=== PATIENT | female | born 1940 | race Caucasian/White ===

== ENCOUNTER 2018-02-17 15:49 | Observation (INO) | payer OTHER, MEDICARE ==
--- NOTE | 2018-02-17 15:53 | PDOC ---
Rapid Medical Evaluation Chief Complaint: Syncope/Near Syncope Time Seen by Provider: 02/17/18 15:52 Medical Evaluation: Allergies Allergy/AdvReac Type Severity Reaction Status Date / Time No Known Allergies Allergy Verified 02/17/18 15:52 02/17/18 15:57 The patient presents with a chief complaint of: synopal episodes, last one 2 days ago I have performed a brief in-person evaluation of this patient. Pertinent physical exam findings: vss, stable I have ordered the following: ekg, sncope labs The patient will proceed to the ED for further evaluation.
[2018-02-17 16:37] LABS: BASO % 0.4 % (0-2.0); EOS % 0.5 % (0-4.5); HEMATOCRIT 39.7 % (32.4-45.2); HEMOGLOBIN 13.6 GM/dL (10.7-15.3); LYMPH % 19.3 % (8-40); MCH 30.9 pg (25.7-33.7); MCHC 34.2 g/dl (32.0-36.0); MEAN CELL VOLUME 90.5 fl (80-96); MONO % 6.6 % (3.8-10.2); NEUT % 73.2 % (42.8-82.8); PLATELET COUNT 252 K/MM3 (134-434); RBC 4.39 M/mm3 (3.60-5.2); RDW 15.1 % (11.6-15.6); WHITE BLOOD COUNT 10.2 K/mm3 (4.0-10.0)
[2018-02-17 17:18] LABS: ALBUMIN 3.9 g/dl (3.4-5.0); ALK PHOS 56 U/L (45-117); ANION GAP 7 MMOL/L (8-16); BILIRUBIN,TOTAL 1.2 mg/dL (0.2-1); BLOOD UREA NITROGEN 18 mg/dL (7-18); CALCIUM 9.2 mg/dL (8.5-10.1); CHLORIDE 106 mmol/L (98-107); CO2 27 mmol/L (21-32); CREATININE 0.7 mg/dL (0.55-1.3); GLUCOSE,RANDOM 79 mg/dL (74-106); POTASSIUM 3.7 mmol/L (3.5-5.1); SGOT/AST 27 U/L (15-37); SGPT/ALT 30 U/L (13-61); SODIUM 140 mmol/L (136-145); TOT PROT 6.9 g/dl (6.4-8.2)
--- NOTE | 2018-02-17 17:57 | PDOC ---
History of Present Illness - General Chief Complaint: Syncope/Near Syncope Stated Complaint: LIGHTHEADED (PCP SENT) Time Seen by Provider: 02/17/18 15:52 - History of Present Illness Initial Comments: 02/17/18 17:52 77 yo F w a hx of HTN, HLD, CAD s/p PCI and one stent (3.5 - 4 years ago) presents after being sent here from her PCP - Dr. Ruiz to be evaluated for repeated falls. She has not fallen for the past 3 days and denies any current complaints. She denies having a headache, blurry vision, chest pain, back pain, flank pain, rib pain, SOB or difficulty breathing. She denies dysuria, frequency , urgency. She takes clopidogrel and NSAIDs. Denies taking any other blood thinners. In general when she falls, she feels a bit lightheaded beforehand. She denies palpitations or chest pain during or prior to her falls. She does not lose continence when she falls. She reports that she awakes immediately after falling down and is only passed out for about 30 seconds. She denies confusion after the events. She says one possible trigger for syncopizing is prolonged standing. She reports having a history of passing out when blood is drawn. She denies micturitional syncope. Past History - Past Medical History Allergies/Adverse Reactions: Allergies Allergy/AdvReac Type Severity Reaction Status Date / Time No Known Allergies Allergy Verified 02/17/18 15:52 Home Medications: Ambulatory Orders Atorvastatin Ca [Lipitor] 40 mg PO HS 08/08/15 Clopidogrel Bisulfate [Clopidogrel] 75 mg PO DAILY 08/08/15 Gabapentin 600 mg PO DAILY 08/08/15 Atenolol [Tenormin -] 25 mg PO HS #30 tablet 08/10/15 Lisinopril [Prinivil] 20 mg PO HS #30 tablet 08/10/15 Loratadine [Claritin -] 10 mg PO DAILY #30 tablet 08/10/15 Biotin 10,000 mcg PO DAILY 02/17/18 Calcium Carbonate [Calcium] 600 mg PO DAILY 02/17/18 Furosemide 20 mg PO DAILY 02/17/18 Ibuprofen/Famotidine [Duexis 800-26.6 mg Tablet] 1 each PO DAILY 02/17/18 Losartan Potassium 50 mg PO DAILY 02/17/18 Meloxicam 15 mg PO DAILY 02/17/18 Metoprolol Succinate 50 mg PO DAILY 02/17/18 Cancer: Yes (1 stent) Cardiac Disorders: Yes (CAD) COPD: No HTN: Yes Hypercholesterolemia: Yes - Surgical History Cardiac Surgery: Yes (Stent) - Suicide/Smoking/Psychosocial Hx Smoking History: Never smoked Hx Alcohol Use: No Drug/Substance Use Hx: No Substance Use Type: None Review of Systems - Review of Systems Comments:: 02/17/18 17:58 CONSTITUTIONAL: Absent: fever, chills, diaphoresis, generalized weakness, malaise, loss of appetite HEENT: Absent: rhinorrhea, nasal congestion, throat pain, throat swelling, difficulty swallowing, mouth swelling, ear pain, eye pain, visual Changes CARDIOVASCULAR: Present: syncope, lightheadedness Absent: chest pain, palpitations, irregular heart rate, peripheral edema RESPIRATORY: Absent: cough, shortness of breath, dyspnea with exertion, orthopnea, wheezing, stridor, hemoptysis GASTROINTESTINAL: Absent: abdominal pain, abdominal distension, nausea, vomiting, diarrhea, constipation, melena, hematochezia GENITOURINARY: Absent: dysuria, frequency, urgency, hesitancy, hematuria, flank pain, genital pain MUSCULOSKELETAL: Absent: myalgia, arthralgia, joint swelling SKIN: Absent: rash, itching, pallor HEMATOLOGIC/IMMUNOLOGIC: Absent: easy bleeding, easy bruising, lymphadenopathy, frequent infections ENDOCRINE: Absent: unexplained weight gain, unexplained weight loss, heat intolerance, cold intolerance NEUROLOGIC: Absent: headache, focal weakness or paresthesias, dizziness, unsteady gait, seizure, mental status changes, bladder or bowel incontinence PSYCHIATRIC: Absent: anxiety, depression, suicidal or homicidal ideation, hallucinations. *Physical Exam - Vital Signs Last Vital Signs Temp Pulse Resp BP Pulse Ox 98.8 F 86 18 168/74 97 02/17/18 15:52 02/17/18 15:52 02/17/18 15:52 02/17/18 15:52 02/17/18 15:52 - Physical Exam Comments: 02/17/18 17:59 GENERAL: Well developed, well nourished. Awake and alert. No acute distress. HEENT: Normocephalic, atraumatic. PERRLA, EOMI. No conjunctival pallor. Sclera are non- icteric. Moist mucous membranes. Oropharynx is clear. NECK: Supple. Full ROM. No JVD. No thyromegaly. No lymphadenopathy. CARDIOVASCULAR: Regular rate and rhythm. No murmurs, rubs, or gallops. Distal pulses are 2+ and symmetric. PULMONARY: No evidence of respiratory distress. Lungs clear to auscultation bilaterally. No wheezing, rales or rhonchi. ABDOMINAL: Soft. Non-tender. Non-distended. No rebound or guarding. No organomegaly. Normoactive bowel sounds. MUSCULOSKELETAL Normal range of motion at all joints. No bony deformities or tenderness. No CVA tenderness. EXTREMITIES: No cyanosis. No clubbing. No edema. No calf tenderness. SKIN: Warm and dry. Normal capillary refill. No rashes. No jaundice. NEUROLOGICAL: Alert, awake, appropriate. Cranial nerves 2-12 intact. No deficits to light touch in face, upper extremities and lower extremities. No motor deficits in the in face, upper extremities and lower extremities. Normal speech. Gait is normal without ataxia. PSYCHIATRIC: Cooperative. Good eye contact. Appropriate mood and affect. ED Treatment Course - LABORATORY CBC & Chemistry Diagram: 02/17/18 16:08 02/17/18 16:08 - ADDITIONAL ORDERS Additional order review: Laboratory Results 02/17/18 16:08 Sodium 140 Potassium 3.7 Chloride 106 Carbon Dioxide 27 Anion Gap 7 L BUN 18 Creatinine 0.7 Creat Clearance w eGFR > 60 Random Glucose 79 Calcium 9.2 Total Bilirubin 1.2 H AST 27 ALT 30 Alkaline Phosphatase 56 Creatine Kinase 224 H Troponin I < 0.02 Total Protein 6.9 Albumin 3.9 02/17/18 16:08 RBC 4.39 MCV 90.5 MCHC 34.2 RDW 15.1 MPV 9.0 Neutrophils % 73.2 Lymphocytes % 19.3 Monocytes % 6.6 Eosinophils % 0.5 Basophils % 0.4 Medical Decision Making - Medical Decision Making 02/17/18 18:01 77 yo F w a hx of HTN, HLD, CAD s/p PCI and one stent (3.5 - 4 years ago) presents from Dr. Ruiz's office to be admitted for repeated falls. She is currently not in any distress and has not fallen for the past 3 days. She is on clopidogrel and NSAIDs. Based on her fall descriptions and given her cardiac hx this sounds like it can be cardiac in nature. Unlikely seizures based on lack of postictal periods and no loss of continence. DD: Syncope - cardiogenic vs vasovagal, polypharmacy, cva, infection, dehydration, orthostatic hypotension. Plan: Labs, urine, ekg, CXR, Admit. 02/17/18 18:42 *DC/Admit/Observation/Transfer Diagnosis at time of Disposition: Lightheadedness, CAD (coronary artery disease), Repeated falls - Discharge Dispostion Condition at time of disposition: Guarded Decision to Admit order: Yes - Referrals Referrals: Sofía Ruiz MD [Primary Care Provider] - - Patient Instructions - Post Discharge Activity
[2018-02-17 18:34] LABS: URINE APPEARANCE CLEAR; URINE BILIRUBIN NEGATIVE (<2.0 mg/dL); URINE COLOR YELLOW; URINE GLUCOSE (UA) NEGATIVE (NEGATIVE); URINE KETONE TRACE (NEGATIVE); URINE NITRITE NEGATIVE (NEGATIVE); URINE PROTEIN NEGATIVE (NEGATIVE)
[2018-02-17 18:38] LABS: URINE LEUK ESTERASE 2+ (NEGATIVE)
--- NOTE | 2018-02-17 18:43 | PDOC ---
Attending Attestation - Resident Resident Name: Ezekiel Pickett - ED Attending Attestation I have performed the following: I have examined & evaluated the patient, The case was reviewed & discussed with the resident, I agree w/resident's findings & plan, Exceptions are as noted - HPI HPI: 02/17/18 18:40 77 yo female sent in by DR Ruiz for admission for "drop episodes" and falls.Her last fall was 3 days ago -she states she feels lightheaded just before she goes down and she has a short episode of LOC lasting less than 30 seconds 02/17/18 21:11 - Physicial Exam PE: 02/17/18 21:12 77 yo fmeale in no acute distress,conversant and ambulatory head ncat eyes val eomi neck supple lungs cta b/l cvs [id number] no rubs or murmurs abd nontender ext no edema,no erythema skin warm and dry neuro axox3,no gross focal neuro deficits appreciated psych appropriate - Medical Decision Making 02/17/18 18:43 Past medical history significant for hypertension, coronary artery disease, status post PCI 1 cardiac stent. She is on Plavix and NSAIDs at home. Here her first troponin is negative Patient admitted to telemetry floor for repeated falls and syncopal episode 02/17/18 18:44 02/17/18 21:14 negative troponin stable VS admitted
[2018-02-17 18:56] LABS: EPI CELLS RARE /HPF (FEW); URINE HYALINE CAST 1 /lpf; URINE MUCUS RARE
[2018-02-17 20:39] LABS: INR 0.94 (0.83-1.09); PROTHROMBIN TIME (PATIENT) 10.6 SEC (9.7-13.0)
[2018-02-17] MEDS ORDERED: HEPARIN NA (PORCINE) 5,000 UNITS/ML 1ML VIAL ONE (22:29)
--- NOTE | 2018-02-17 22:31 | HP ---
CHIEF COMPLAINT: frequent falls PCP: Joseph HISTORY OF PRESENT ILLNESS: This is a 77 year old female with a significant past medical history of HTN, CAD who presented to the ED from Dr. Ruiz's office for admission for frequent falls. Pt reports that she often has episodes where she becomes weak and slumps to the floor then wakes back up right away. She has not had an episode in the past couple of days. She denies chest pain or dizziness during the episodes. She does report SOB with walking. ER course was notable for: (1) troponin neg x 1 (2) CT head without acute intracranial pathology (3) Recent Travel: pt denies PAST MEDICAL HISTORY: HTN, HLD, CAD s/p stent 5-6y ago, angioplasty 1y ago, neuropathy, depression PAST SURGICAL HISTORY: Tonsillectomy as a child cardiac stent x 1 Social History: Smoking: quit 40y ago, prior 1/2 PPD Alcohol: 1 glass of wine with dinner occasionally Drugs: denies Family History: parents in their 70s, unknown COD no siblings Allergies No Known Allergies Allergy (Verified 02/17/18 15:52) HOME MEDICATIONS: 3 Medication Instructions Recorded Atorvastatin Ca [Lipitor] 40 mg PO HS 08/08/15 Gabapentin 400 mg PO HS 08/08/15 Biotin 1,000 mcg PO DAILY 02/17/18 Calcium Carbonate [Calcium] 600 mg PO DAILY 02/17/18 Furosemide 20 mg PO DAILY 02/17/18 Ibuprofen/Famotidine [Duexis 1 each PO BID 02/17/18 800-26.6 mg Tablet] Losartan Potassium 100 mg PO DAILY 02/17/18 Metoprolol Succinate 50 mg PO DAILY 02/17/18 Amlodipine Besylate 5 mg PO DAILY 02/18/18 Citalopram Hydrobromide [Celexa -] 20 mg PO DAILY 02/18/18 Magnesium 1 tab PO DAILY 02/18/18 REVIEW OF SYSTEMS CONSTITUTIONAL: Present: generalized weakness Absent: fever, chills, diaphoresis, malaise, loss of appetite, weight change HEENT: Absent: rhinorrhea, nasal congestion, throat pain, throat swelling, difficulty swallowing, mouth swelling, ear pain, eye pain, visual changes CARDIOVASCULAR: Absent: chest pain, syncope, palpitations, irregular heart rate, lightheadedness , peripheral edema RESPIRATORY: Present: dyspnea with exertion Absent: cough, shortness of breath, orthopnea, wheezing, stridor, hemoptysis GASTROINTESTINAL: Absent: abdominal pain, abdominal distension, nausea, vomiting, diarrhea, constipation, melena, hematochezia GENITOURINARY: Absent: dysuria, frequency, urgency, hesitancy, hematuria, flank pain, genital pain MUSCULOSKELETAL: Absent: myalgia, arthralgia, joint swelling, back pain, neck pain SKIN: Absent: rash, itching, pallor HEMATOLOGIC/IMMUNOLOGIC: Absent: easy bleeding, easy bruising, lymphadenopathy, frequent infections ENDOCRINE: Absent: unexplained weight gain, unexplained weight loss, heat intolerance, cold intolerance NEUROLOGIC: Absent: headache, focal weakness or paresthesias, dizziness, unsteady gait, seizure, mental status changes, bladder or bowel incontinence PSYCHIATRIC: Absent: anxiety, depression, suicidal or homicidal ideation, hallucinations. PHYSICAL EXAMINATION Vital Signs - 24 hr 3 02/17/18 02/17/18 15:52 22:16 Temperature 98.8 F 98.2 F Pulse Rate 86 Pulse Rate [ 80 Apical] Respiratory 18 20 Rate Blood Pressure 168/74 Blood Pressure 148/72 [Right Arm] O2 Sat by Pulse 97 98 Oximetry (%) GENERAL: Awake, alert, and fully oriented, in no acute distress. HEAD: Normal with no signs of trauma. EYES: Pupils equal, round and reactive to light, extraocular movements intact, sclera anicteric, conjunctiva clear. No lid lag. EARS, NOSE, THROAT: Ears normal, nares patent, oropharynx clear without exudates. Moist mucous membranes. NECK: Normal range of motion, supple without lymphadenopathy, JVD, or masses. LUNGS: Breath sounds equal, clear to auscultation bilaterally. No wheezes, and no crackles. No accessory muscle use. HEART: Regular rate and rhythm, normal S1 and S2 without murmur, rub or gallop. ABDOMEN: Soft, nontender, not distended, normoactive bowel sounds, no guarding, no rebound, no masses. No hepatomegaly or splenomegaly. MUSCULOSKELETAL: Normal range of motion at all joints. No bony deformities or tenderness. No CVA tenderness. UPPER EXTREMITIES: 2+ pulses, warm, well-perfused. No cyanosis. No clubbing. No peripheral edema. LOWER EXTREMITIES: 2+ pulses, warm, well-perfused. No calf tenderness. No peripheral edema. NEUROLOGICAL: Cranial nerves II-XII intact. Normal speech. Normal gait. PSYCHIATRIC: Cooperative. Good eye contact. Appropriate mood and affect. SKIN: Warm, dry, normal turgor, no rashes or lesions noted, normal capillary refill. Laboratory Results - last 24 hr 3 02/17/18 02/17/18 02/17/18 16:08 16:08 16:08 WBC 10.2 H RBC 4.39 Hgb 13.6 Hct 39.7 MCV 90.5 MCH 30.9 MCHC 34.2 RDW 15.1 Plt Count 252 MPV 9.0 Absolute Neuts (auto) 7.5 Neutrophils % 73.2 Lymphocytes % 19.3 Monocytes % 6.6 Eosinophils % 0.5 Basophils % 0.4 Nucleated RBC % 0 PT with INR 10.60 INR 0.94 PTT (Actin FS) 30.0 Sodium 140 Potassium 3.7 Chloride 106 Carbon Dioxide 27 Anion Gap 7 L BUN 18 Creatinine 0.7 Creat Clearance w eGFR > 60 Random Glucose 79 Calcium 9.2 Total Bilirubin 1.2 H AST 27 ALT 30 Alkaline Phosphatase 56 Creatine Kinase 224 H Creatine Kinase Index 3.5 CK-MB (CK-2) 7.9 H Troponin I < 0.02 Total Protein 6.9 Albumin 3.9 Urine Color Urine Appearance Urine pH Ur Specific [place] Urine Protein Urine Glucose (UA) Urine Ketones Urine Blood Urine Nitrite Urine Bilirubin Urine Urobilinogen Ur Leukocyte Esterase Urine WBC (Auto) Urine RBC (Auto) Ur Epithelial Cells Hyaline Casts Urine Mucus 3 Urine Color Yellow 02/17/18 18:11 Urine Appearance Clear 02/17/18 18:11 Urine pH 6.0 (5.0-8.0) 02/17/18 18:11 Ur Specific [place] 1.023 (1.001-1.035) 02/17/18 18:11 Urine Protein Negative (NEGATIVE) 02/17/18 18:11 Urine Glucose (UA) Negative (NEGATIVE) 02/17/18 18:11 Urine Ketones Trace (NEGATIVE) H 02/17/18 18:11 Urine Blood Negative (NEGATIVE) 02/17/18 18:11 Urine Nitrite Negative (NEGATIVE) 02/17/18 18:11 Urine Bilirubin Negative (<2.0 mg/dL) 02/17/18 18:11 Ur Leukocyte Esterase 2+ (NEGATIVE) H 02/17/18 18:11 Urine WBC (Auto) 12 02/17/18 18:11 Urine RBC (Auto) 10 02/17/18 18:11 Ur Epithelial Cells Rare /HPF (FEW) 02/17/18 18:11 Hyaline Casts 1 02/17/18 18:11 Urine Mucus Rare 02/17/18 18:11 ECG normal sinus rhythm vent rate 79, QTC 458 left axis deviation incomplete LBBB TWI lead V5-V6 and aVL Radiology Reports CT head Impression: Mild volume loss without evidence of acute intracranial pathology. Bilateral mastoid effusion Reported By: Conner Downs MD 02/17/182102 Chest PA / Lat Impression: No significant interval change Borderline cardiomegaly without evidence of acute lung disease Reported By: Conner Downs MD 02/17/181954 ASSESSMENT/PLAN: 77yF with PMH HTN, HLD, CAD s/p stent 5-6y ago, angioplasty 1y ago, neuropathy, depression presented to the ED with h/o frequent falls. ? transient episodes LOC - admit to tele - trend troponin - cardiology consult, defer to PCP in am - last echo in 2015, will repeat - consider neuro consult, defer to PCP HTN/HLD - cont home meds: lipitor, lasix, losartan, toprol, amlodipine CAD - pt previously on plavix but not on most recent med list from PCP, PCP to f/ u in am - cont lipitor, statin depression - cont home celexa DVT PPX - heparin 5000u BID FEN - tolerating po - BMP in am - low sodium diet as tolerated Dispo: pt currently requires further observation. Visit type - Emergency Visit Emergency Visit: Yes ED Registration Date: 02/17/18 Care time: The patient presented to the Emergency Department on the above date and was hospitalized for further evaluation of their emergent condition. - New Patient This patient is new to me today: Yes Date on this admission: 02/17/18 - Critical Care Critical Care patient: No Hospitalist Screening - Colonoscopy Questionnaire Colonoscopy Questionnaire: Colonoscopy Questionnaire - Patient: 50 - 75 years old and never had a screening colonoscopy: No History of colon or rectal polyps, or CA: No History of IBD, Crohn's disease or UC: No History of abdominal radiation therapy as a child: No - Relative: 1 with colon or rectal CA, or polyps at age 60 or younger: No Colon or rectal CA diagnosed at age 45 or younger: No Multiple relatives with colon or rectal CA: No - Outcome: Screening Result: Negative Screen
[2018-02-17] MEDS: HEPARIN NA (PORCINE) 5,000 UNITS/ML 1ML VIAL SQ SCH (22:35)
[2018-02-18 00:02] VITALS: BMI 24.1
[2018-02-18 06:15] LABS: BASO % 0.3 % (0-2.0); EOS % 0.7 % (0-4.5); HEMATOCRIT 36.8 % (32.4-45.2); HEMOGLOBIN 12.4 GM/dL (10.7-15.3); LYMPH % 22.5 % (8-40); MCH 30.5 pg (25.7-33.7); MCHC 33.7 g/dl (32.0-36.0); MEAN CELL VOLUME 90.5 fl (80-96); MEAN PLT VOLUME 8.6 fl (7.5-11.1); MONO % 9.8 % (3.8-10.2); NEUT % 66.7 % (42.8-82.8); PLATELET COUNT 201 K/MM3 (134-434); RBC 4.07 M/mm3 (3.60-5.2); RDW 14.9 % (11.6-15.6); WHITE BLOOD COUNT 7.8 K/mm3 (4.0-10.0)
[2018-02-18 06:47] LABS: ANION GAP 8 MMOL/L (8-16); BLOOD UREA NITROGEN 14 mg/dL (7-18); CALCIUM 8.7 mg/dL (8.5-10.1); CHLORIDE 108 mmol/L (98-107); CO2 29 mmol/L (21-32); CREATININE 0.6 mg/dL (0.55-1.3); GLUCOSE,RANDOM 84 mg/dL (74-106); POTASSIUM 3.9 mmol/L (3.5-5.1); SODIUM 144 mmol/L (136-145)
--- NOTE | 2018-02-18 08:02 | PN ---
Progress Note, Physician - Current Medication List Current Medications: Active Medications Amlodipine Besylate (Norvasc -) 5 mg PO DAILY [facility] Atorvastatin Calcium (Lipitor -) 40 mg PO HS [facility] Calcium Carbonate (Os-Albert 500mg -) 500 mg PO DAILY [facility] Citalopram Hydrobromide (Celexa -) 20 mg PO DAILY [facility] Furosemide (Lasix -) 20 mg PO DAILY [facility] Gabapentin (Neurontin -) 400 mg PO HS [facility] Heparin Sodium (Porcine) (Heparin -) 5,000 unit SQ BID [facility] Last Admin: 02/17/18 22:35 Dose: 5,000 unit Losartan Potassium (Cozaar -) 100 mg PO DAILY [facility] Magnesium Oxide (Mag-Ox -) 400 mg PO DAILY [facility] Metoprolol Succinate (Toprol Xl -) 50 mg PO DAILY [facility] - Objective Vital Signs: Vital Signs Temperature 97.6 F 02/18/18 05:00 Pulse Rate 68 02/18/18 05:00 Respiratory Rate 18 02/18/18 05:00 Blood Pressure 137/57 L 02/18/18 05:00 O2 Sat by Pulse Oximetry (%) 99 02/18/18 05:00 Cardiovascular: Yes: Murmur, S1, S2 Respiratory: Yes: Regular, CTA Bilaterally Gastrointestinal: Yes: Normal Bowel Sounds, Soft Edema: No Neurological: Yes: Alert, Oriented, Weakness Labs: CBC, BMP 02/18/18 06:00 02/18/18 06:00 INR, PTT INR 0.94 (0.83-1.09) 02/17/18 16:08 Problem List - Problems (1) Repeated falls Assessment/Plan: - admit to tele - trend troponin - cardiology consult, - last echo in 2015, will repeat - neuro consult - Orthostatic bp - U/a and C/S Code(s): R29.6 - REPEATED FALLS (2) Cardiomyopathy Assessment/Plan: -Ef 40 % -Cardio -Tele Code(s): I42.9 - CARDIOMYOPATHY, UNSPECIFIED (3) CAD (coronary artery disease) Assessment/Plan: -Home meds -Check previous w/u Code(s): I25.10 - ATHSCL HEART DISEASE OF [place] CORONARY ARTERY W/O ANG PCTRS (4) Lightheadedness Assessment/Plan: -As above Code(s): R42 - DIZZINESS AND GIDDINESS (5) HTN (hypertension) Assessment/Plan: -Monitor on current meds Code(s): I10 - ESSENTIAL (PRIMARY) HYPERTENSION Qualifiers: Hypertension type: essential hypertension Qualified Code(s): I10 - Essential (primary) hypertension
[2018-02-18] MEDS: CALCIUM (OYSTER SHELL) 500 MG TABLET (FP) PO SCH (09:30)
[2018-02-18] MEDS: amLODIPine BESYLATE 5 MG TABLET (FP) PO SCH (09:30)
[2018-02-18] MEDS: HEPARIN NA (PORCINE) 5,000 UNITS/ML 1ML VIAL SQ SCH ×2 (09:31→22:31)
[2018-02-18] MEDS: FUROSEMIDE 20 MG TABLET (FP) PO SCH (09:31)
[2018-02-18] MEDS: MAGNESIUM OXIDE 400 MG TABLET (FP) PO SCH (09:31)
[2018-02-18] MEDS: CITALOPRAM HYDROBROMIDE 20 MG TABLET (FP) PO SCH (09:31)
[2018-02-18] MEDS: LOSARTAN POTASSIUM 50 MG TABLET (FP) PO SCH (09:31)
[2018-02-18] MEDS ORDERED: PATIENT'S OWN MEDICATION (NON-FORMULARY) (Biotin [Biotin] 1,000 MCG) PO SCH (10:00)
--- NOTE | 2018-02-18 10:01 | CON.NEURO ---
Consult Consult Specialty:: [facility] Referred by:: Joseph - History of Present Illness History of Present Illness: 77 years old woman with PMH CAD OA Ch LBP Anxeity For a while patient with episode of infrequent falling No LOC no [employer] no sz like activity - History Source History Provided By: Patient Limitations to Obtaining History: Clinical Condition - Past Medical History [employer]IOR[employer] HE[employer]: Yes: Syncope Cardio/Vascular: Yes: CAD - Alcohol/Substance Use Hx Alcohol Use: No - Smoking History Smoking history: Former smoker Have you smoked in the past 12 months: No If you are a former smoker, when did you quit?: quit 50 years ago Home Medications - Allergies Allergies/Adverse Reactions: Allergies Allergy/AdvReac Type Severity Reaction Status Date / Time No Known Allergies Allergy Verified 02/17/18 15:52 - Home Medications Home Medications: Ambulatory Orders Atorvastatin Ca [Lipitor] 40 mg PO HS 08/08/15 Gabapentin 400 mg PO HS 08/08/15 Biotin 1,000 mcg PO DAILY 02/17/18 Calcium Carbonate [Calcium] 600 mg PO DAILY 02/17/18 Furosemide 20 mg PO DAILY 02/17/18 Ibuprofen/Famotidine [Duexis 800-26.6 mg Tablet] 1 each PO BID 02/17/18 Losartan Potassium 100 mg PO DAILY 02/17/18 Metoprolol Succinate 50 mg PO DAILY 02/17/18 Amlodipine Besylate 5 mg PO DAILY 02/18/18 Citalopram Hydrobromide [Celexa -] 20 mg PO DAILY 02/18/18 Magnesium 1 tab PO DAILY 02/18/18 Physical Exam-Neuro Vital Signs: Vital Signs Temperature 97.6 F 02/18/18 05:00 Pulse Rate 68 02/18/18 05:00 Respiratory Rate 18 02/18/18 05:00 Blood Pressure 137/57 L 02/18/18 05:00 O2 Sat by Pulse Oximetry (%) 99 02/18/18 05:00 Labs: CBC, BMP 02/18/18 06:00 02/18/18 06:00 INR, PTT INR 0.94 (0.83-1.09) 02/17/18 16:08 - Neuro Exam Level Of Consciousness: Yes: Oriented to Person, Oriented to Place, Oriented to Time Eyes: Yes: PERRLA Speech: WNL Dominant Hand: Right DTR's: 1+ Left Bicep, 1+ Right Bicep, 1+ Left Brachioradialis, 1+ Right Brachioradialis Response to light touch: Normal Response to pain prick: Normal Response to temperature: Normal Motor Strength: 3/5: Left Arm, Right Arm, Left Leg, Right Leg Gait: Deferred Imaging - Results Cat Scan: Image Reviewed Problem List - Problems (1) Lightheadedness Assessment/Plan: Doubt sz or TIA Ruloe out cardiac Arrythmia 1 Holter 2. Orthosstic check s 3. MRI brain with no Michael Code(s): R42 - DIZZINESS AND GIDDINESS
--- NOTE | 2018-02-18 11:33 | ECHO ---
Name: JESS WOOD Exam:Adult Echocardiogram Study Date: 02/18/2018 07:57 AM Age: 77 yrs Reason For Study: CAD Height: 62 in Weight: 132 lb BSA: 1.6 m2 MMode/2D Measurements & Calculations IVSd: 1.1 cm Ao root diam: 2.8 cm LVIDd: 6.2 cm LA dimension: 4.5 cm LVIDs: 4.6 cm LVPWd: 0.83 cm EDV(Teich): 197.5 ml LAV (MOD-bp): 55.9 ml ESV(Teich): 98.9 ml Doppler Measurements & Calculations MV E max loyd: 74.2 cm/sec AI P1/2t: 550.9 msec MV A max loyd: 122.2 cm/sec MV E/A: 0.61 MV dec time: 0.14 sec AI max loyd: 485.3 cm/sec MR max loyd: 561.6 cm/sec AI max P.3 mmHg MR max P.3 mmHg AI dec slope: 258.0 cm/sec2 TR max loyd: 297.8 cm/sec Med Peak E' Loyd: 3.5 cm/sec TR max P.6 mmHg Med E/e': 21.3 Lat Peak E' Loyd: 3.2 cm/sec Lat E/e': 23.5 PI Vmax: 171.0 cm/sec Procedure A two-dimensional transthoracic echocardiogram with color flow and Doppler was performed. The study w as technically difficult with many images being suboptimal in quality. The patient was in normal sinus r hythm during the exam. Left Ventricle The left ventricle is moderately dilated. Left ventricular systolic function is moderately reduced. E jection Fraction = 45%. E/A reversal consistent with but not diagnostic of poor LV compliance. There is moder ate global hypokinesis of the left ventricle. Right Ventricle The right ventricle is normal in size and function. Atria The left atrium is moderately dilated. The right atrium is mildly dilated. Mitral Valve There is mild mitral valve thickening. There is mild mitral regurgitation. Tricuspid Valve The tricuspid valve is normal. There is mild tricuspid regurgitation. Right ventricular systolic pres sure is elevated at 40-50mmHg. Aortic Valve There is mild aortic sclerosis.;. The aortic valve is trileaflet. No hemodynamically significant valv ular aortic stenosis. Moderate aortic regurgitation. Pulmonic Valve The pulmonic valve is not well seen, but is grossly normal. Trace pulmonic valvular regurgitation. Great Vessels The aortic root is normal size. Pericardium/Pleura There is no pericardial effusion. Interpretation Summary The left ventricle is moderately dilated. Left ventricular systolic function is moderately reduced. Ejection Fraction = 45%. E/A reversal consistent with but not diagnostic of poor LV compliance There is moderate global hypokinesis of the left ventricle. The right ventricle is normal in size and function. The left atrium is moderately dilated. The right atrium is mildly dilated. There is mild mitral regurgitation. There is mild tricuspid regurgitation. Right ventricular systolic pressure is elevated at 40-50mmHg. There is mild aortic sclerosis.; Moderate aortic regurgitation. Trace pulmonic valvular regurgitation. There is no pericardial effusion. MD Oniel Muhammad 02/18/2018 11:33 AM
--- NOTE | 2018-02-18 12:09 | CON.CARD ---
Consult Consult Specialty:: Cardiology Referred by:: Joseph Reason for Consultation:: falls - History of Present Illness Chief Complaint: fall History of Present Illness: 77F h/o HTN, cardiomyopathy EF 45%, CAD h/o stent p/w frequent falls. Has episodes where she gets weak and falls towards the fall. Doesn't think ti's dizziness, feels like she is going to black out but then does not black out. No chest pain, palps, sob, dizziness. Sees cardio, last saw laxmi 08/2017 Doesn 't remember last cardiac testing. has chronic stable holley over years, no chest pain, no edema. 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 Cardio/Vascular: Yes: CAD - Alcohol/Substance Use Hx Alcohol Use: No - Smoking History Smoking history: Former smoker Have you smoked in the past 12 months: No If you are a former smoker, when did you quit?: quit 50 years ago Home Medications - Allergies Allergies/Adverse Reactions: Allergies Allergy/AdvReac Type Severity Reaction Status Date / Time No Known Allergies Allergy Verified 02/17/18 15:52 - Home Medications Home Medications: Ambulatory Orders Atorvastatin Ca [Lipitor] 40 mg PO HS 08/08/15 Gabapentin 400 mg PO HS 08/08/15 Biotin 1,000 mcg PO DAILY 02/17/18 Calcium Carbonate [Calcium] 600 mg PO DAILY 02/17/18 Furosemide 20 mg PO DAILY 02/17/18 Ibuprofen/Famotidine [Duexis 800-26.6 mg Tablet] 1 each PO BID 02/17/18 Losartan Potassium 100 mg PO DAILY 02/17/18 Metoprolol Succinate 50 mg PO DAILY 02/17/18 Amlodipine Besylate 5 mg PO DAILY 02/18/18 Citalopram Hydrobromide [Celexa -] 20 mg PO DAILY 02/18/18 Magnesium 1 tab PO DAILY 02/18/18 Family Disease History - Family Disease History Family History: Unremarkable Review of Systems - Review of Systems Constitutional: reports: No Symptoms Eyes: reports: No Symptoms HENT: reports: No Symptoms Neck: reports: No Symptoms Cardiovascular: reports: No Symptoms Respiratory: reports: SOB on Exertion Gastrointestinal: reports: No Symptoms Genitourinary: reports: No Symptoms Musculoskeletal: reports: No Symptoms Integumentary: reports: No Symptoms Neurological: reports: No Symptoms Endocrine: reports: No Symptoms Hematology/Lymphatic: reports: No Symptoms Psychiatric: reports: No Symptoms Vital Signs: Vital Signs Temperature 98.5 F 02/18/18 10:00 Pulse Rate 61 02/18/18 10:00 Respiratory Rate 18 02/18/18 10:00 Blood Pressure 142/77 02/18/18 10:00 O2 Sat by Pulse Oximetry (%) 95 02/18/18 10:00 Constitutional: Yes: Well Nourished, No Distress, Calm Eyes: Yes: Conjunctiva Clear, EOM Intact HENT: Yes: Atraumatic, Normocephalic Neck: Yes: Supple, Trachea Midline Respiratory: Yes: Regular, CTA Bilaterally Gastrointestinal: Yes: Normal Bowel Sounds, Soft Renal/: Yes: WNL Cardiovascular: Yes: Regular Rate and Rhythm JVD: No Heart Sounds: Yes: S1, S2 Musculoskeletal: Yes: WNL Extremities: Yes: WNL Edema: No Peripheral Pulses: 2+ Left Doralis Pedis, 2+ Right Dorsalis Pedis Integumentary: Yes: WNL Neurological: Yes: Alert, Oriented Psychiatric: Yes: Alert, Oriented - Other Data Labs, Other Data: CBC, BMP 02/18/18 06:00 02/18/18 06:00 INR, PTT INR 0.94 (0.83-1.09) 02/17/18 16:08 Troponin, BNP 02/17/18 02/17/18 02/18/18 16:08 21:42 06:00 Troponin I < 0.02 0.02 < 0.02 Troponin, BNP 02/17/18 02/17/18 02/18/18 16:08 21:42 06:00 Troponin I < 0.02 0.02 < 0.02 Assessment/Plan Cath/PCI 05/2013: LCx--OM1 DOV PCI, minimal residual, minimally reduced LVF on LV gram Carotid Doppler 10/2014: normal PVR 05/2013: normal Lexiscan Stress MPI 10/2014: infero-lateral scar, no ischemia. echo 07/2015: nl lv/rv, mild lae, mod mr, mild tr, mild-mod ar, mild pr, rvsp 30 -40 LHC 03/2017 EDP 10, EF 45% apical and diaphragmatic wall hypok, myocardial bridging mid LAD <30%, mild pRCA <30% Dobut stresse echo 02/2017 ischemic stress by EKG, no inducible ischemia, fixed area of severe hypok of inferior and inferolateral wallsand apical portion of lateral wallrest and post exercise EF unchnaged, EF 40%no augmentation of contraction in ant and remainder of lateral alicea, mild MR echo 01/2018 EF 45%, mod reduced, E/A reversal, global LV hypokinesis, RV nl, LA mod dilated, mild MR, mild TR, RVSP 40-50 mmHg, mod AR tele: sinus, sinus ej, PVCs 77F with known CAD--s/p LCx--OM1 DOV PCI 05/2013 (on plavix alone b/c ASA caused epistaxis), HTN, HPL and remote pAF who presents with falls frequent falls, presyncope - monitoring on tele, no events - trop neg x 2, stable EKG, unlkely ACS -orthostatic negative - echo shows cardiomyopathy, stable reviewed records from Dr. Cervantes's office EF 40-45% with rwma on prior studies - unlikely cardiac etiology for falls CAD s/p LCx--OM1 DOV PCI 05/2013 with inferolateral scar on MIBI: - stable, no signs acs, trop neg x 2 - was on plavix prior per notes from Dr. Cervantes, however not on meds list here. patient does not remember meds (prior aspirin intolerance, epistaxis) - would restart plavix if no contraindication - Con't atorvastatin, atenolol cardiomyopathy - stable EF - Currently euvolemic with no signs of decompensation - cont metoprolol, lasix, losartan HTN - stable on metoprolol, lasix, amlodipine, losartan HPL: - Cont atorvastatin remote pAF: - Per prior cardiology notes brief remote pAfib not considered clinically significant and she has not had recurrence and not been on AC. - no afib on tele
[2018-02-18] MEDS ORDERED: ATORVASTATIN CA 40 MG TABLET (FP) PO SCH (22:00)
[2018-02-18] MEDS ORDERED: GABAPENTIN 400 MG CAPSULE (FP) PO SCH (22:00)
[2018-02-19] MEDS: LOSARTAN POTASSIUM 50 MG TABLET (FP) PO SCH (10:00)
[2018-02-19] MEDS: CITALOPRAM HYDROBROMIDE 20 MG TABLET (FP) PO SCH (10:00)
[2018-02-19] MEDS: FUROSEMIDE 20 MG TABLET (FP) PO SCH (10:01)
[2018-02-19] MEDS: CALCIUM (OYSTER SHELL) 500 MG TABLET (FP) PO SCH (10:01)
[2018-02-19] MEDS: HEPARIN NA (PORCINE) 5,000 UNITS/ML 1ML VIAL SQ SCH (10:01)
[2018-02-19] MEDS: MAGNESIUM OXIDE 400 MG TABLET (FP) PO SCH (10:01)
[2018-02-19] MEDS: amLODIPine BESYLATE 5 MG TABLET (FP) PO SCH (10:01)
--- NOTE | 2018-02-19 11:42 | EKG ---
Test Reason : Blood Pressure : / mmHG Vent. Rate : 079 BPM Atrial Rate : 079 BPM P-R Int : 162 ms QRS Dur : 118 ms QT Int : 400 ms P-R-T Axes : 057 -36 114 degrees QTc Int : 458 ms NORMAL SINUS RHYTHM LEFT AXIS DEVIATION INCOMPLETE LEFT BUNDLE BRANCH BLOCK T WAVE ABNORMALITY, CONSIDER LATERAL ISCHEMIA ABNORMAL ECG WHEN COMPARED WITH ECG OF 08-AUG-2015 14:12, INCOMPLETE LEFT BUNDLE BRANCH BLOCK IS NOW PRESENT Confirmed by MARJAN NORRIS, OCTAVIA ([id number]) on 02/19/2018 11:41:50 AM Referred By: Confirmed By:OCTAVIA PHILLIP MD
--- NOTE | 2018-02-19 12:15 | PN ---
Progress Note (short form) - Note Progress Note: s: feels well today, no chest pain, palps, dizzy, lightheaded, dyspnea Current Medications Amlodipine Besylate (Norvasc -) 5 mg PO DAILY [facility] Last Admin: 02/19/18 10:01 Dose: 5 mg Atorvastatin Calcium (Lipitor -) 40 mg PO HS [facility] Last Admin: 02/18/18 22:30 Dose: 40 mg Calcium Carbonate (Os-Albert 500mg -) 500 mg PO DAILY [facility] Last Admin: 02/19/18 10:01 Dose: 500 mg Citalopram Hydrobromide (Celexa -) 20 mg PO DAILY [facility] Last Admin: 02/19/18 10:00 Dose: 20 mg Furosemide (Lasix -) 20 mg PO DAILY [facility] Last Admin: 02/19/18 10:01 Dose: 20 mg Gabapentin (Neurontin -) 400 mg PO HS [facility] Last Admin: 02/18/18 22:31 Dose: 400 mg Heparin Sodium (Porcine) (Heparin -) 5,000 unit SQ BID [facility] Last Admin: 02/19/18 10:01 Dose: 5,000 unit Losartan Potassium (Cozaar -) 100 mg PO DAILY [facility] Last Admin: 02/19/18 10:00 Dose: 100 mg Magnesium Oxide (Mag-Ox -) 400 mg PO DAILY [facility] Last Admin: 02/19/18 10:01 Dose: 400 mg Metoprolol Succinate (Toprol Xl -) 50 mg PO DAILY [facility] Last Admin: 02/19/18 10:00 Dose: 50 mg Vital Signs: Vital Signs Period Temp Pulse Resp BP Sys/Valdes Pulse Ox Last 24 Hr 97.7 F-98.5 F 54-69 18-20 137-154/60-89 95-98 Constitutional: Yes: Well Nourished, No Distress, Calm Eyes: Yes: Conjunctiva Clear, EOM Intact HENT: Yes: Atraumatic, Normocephalic Neck: Yes: Supple, Trachea Midline Respiratory: Yes: Regular, CTA Bilaterally Gastrointestinal: Yes: Normal Bowel Sounds, Soft Renal/: Yes: WNL Cardiovascular: Yes: Regular Rate and Rhythm JVD: No Heart Sounds: Yes: S1, S2 Musculoskeletal: Yes: WNL Extremities: Yes: WNL Edema: No Peripheral Pulses: 2+ Left Doralis Pedis, 2+ Right Dorsalis Pedis Integumentary: Yes: WNL Neurological: Yes: Alert, Oriented Psychiatric: Yes: Alert, Oriented Assessment/Plan Cath/PCI 05/2013: LCx--OM1 DOV PCI, minimal residual, minimally reduced LVF on LV gram Carotid Doppler 10/2014: normal PVR 05/2013: normal Lexiscan Stress MPI 10/2014: infero-lateral scar, no ischemia. echo 07/2015: nl lv/rv, mild lae, mod mr, mild tr, mild-mod ar, mild pr, rvsp 30 -40 LHC 03/2017 EDP 10, EF 45% apical and diaphragmatic wall hypok, myocardial bridging mid LAD <30%, mild pRCA <30% Dobut stresse echo 02/2017 ischemic stress by EKG, no inducible ischemia, fixed area of severe hypok of inferior and inferolateral wallsand apical portion of lateral wallrest and post exercise EF unchnaged, EF 40%no augmentation of contraction in ant and remainder of lateral alicea, mild MR echo 01/2018 EF 45%, mod reduced, E/A reversal, global LV hypokinesis, RV nl, LA mod dilated, mild MR, mild TR, RVSP 40-50 mmHg, mod AR tele: sinus, sinus ej, PVCs 77F with known CAD--s/p LCx--OM1 DOV PCI 05/2013 (on plavix alone b/c ASA caused epistaxis), HTN, HPL and remote pAF who presents with falls frequent falls, presyncope - monitoring on tele, no events - trop neg x 2, stable EKG, unlkely ACS -orthostatic negative - echo shows cardiomyopathy, stable reviewed records from Dr. Cervantes's office EF 40-45% with rwma on prior studies - unlikely cardiac etiology for falls CAD s/p LCx--OM1 DOV PCI 05/2013 with inferolateral scar on MIBI: - stable, no signs acs, trop neg x 2 - was on plavix prior per notes from Dr. Cervantes, however not on meds list here. 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 - no afib on tele
--- NOTE | 2018-02-19 14:24 | DS ---
Physical Examination Vital Signs: Vital Signs Temperature 97.9 F 02/19/18 10:00 Pulse Rate 62 02/19/18 10:00 Respiratory Rate 18 02/19/18 10:00 Blood Pressure 145/78 02/19/18 10:00 O2 Sat by Pulse Oximetry (%) 98 02/19/18 10:00 Constitutional: Yes: No Distress Eyes: Yes: WNL HENT: Yes: WNL Neck: Yes: WNL Cardiovascular: Yes: WNL Respiratory: Yes: WNL Gastrointestinal: Yes: WNL Musculoskeletal: Yes: WNL Edema: No Peripheral Pulses WNL: Yes Psychiatric: Yes: Other Labs: CBC, BMP 02/18/18 06:00 02/18/18 06:00 Discharge Summary Reason For Visit: REPEATED FALLS\LIGHTHEADEDNESS Current Active Problems CAD (coronary artery disease) (Acute) Cardiomyopathy (Acute) Lightheadedness (Acute) Repeated falls (Acute) Procedures: Principal: MRI BRAIN Hospital Course: ADMITTED FOR SYNCOPE, TREATED WITH TELEMETRY CARDIAC MONITORING, NO ALARMS AND PATIENT IS CLEARED FOR DISCHARGE LIKELY DEHYDRATION VERSUS VASOVAGAL Condition: Guarded - Instructions Diet, Activity, Other Instructions: LOW SODIUM SEE DR RUIZ 1 MONTH Referrals: Sofía Ruiz MD [Primary Care Provider] - Disposition: VNS/HOME HEALTH CARE - Home Medications Comprehensive Discharge Medication List: Ambulatory Orders Atorvastatin Ca [Lipitor] 40 mg PO HS 08/08/15 Gabapentin 400 mg PO HS 08/08/15 Biotin 1,000 mcg PO DAILY 02/17/18 Calcium Carbonate [Calcium] 600 mg PO DAILY 02/17/18 Furosemide 20 mg PO DAILY 02/17/18 Ibuprofen/Famotidine [Duexis 800-26.6 mg Tablet] 1 each PO BID 02/17/18 Losartan Potassium 100 mg PO DAILY 02/17/18 Metoprolol Succinate 50 mg PO DAILY 02/17/18 Amlodipine Besylate 5 mg PO DAILY 02/18/18 Citalopram Hydrobromide [Celexa -] 20 mg PO DAILY 02/18/18 Magnesium 1 tab PO DAILY 02/18/18
[2018-02-19 15:12] VITALS: BP 111/71; PULSE 60; TEMP 98.1
== END 2018-02-19 15:31 | disposition home health service (06) ==
LOC: JER 15:49 → JERBED 18:06 → INTOOBSV 18:06 → J4S 23:10
PROVIDERS: ADMIT Family Medicine; ATTEND Family Medicine
PROC: 3E013GC Introduction of Other Therapeutic Substance into Subcutaneous Tissue, Percutaneous Approach (ICD-10-PCS; principal; 2018-02-17)
DX: R29.6 Repeated falls (principal); R42 Dizziness and giddiness; I10 Essential (primary) hypertension; I25.10 Atherosclerotic heart disease of native coronary artery without angina pectoris; E78.5 Hyperlipidemia, unspecified; Z95.5 Presence of coronary angioplasty implant and graft; F32.9 Major depressive disorder, single episode, unspecified; I42.9 Cardiomyopathy, unspecified; M19.90 Unspecified osteoarthritis, unspecified site; M54.5 Low back pain; G89.29 Other chronic pain; F41.9 Anxiety disorder, unspecified; Z87.891 Personal history of nicotine dependence
CPT/HCPCS: 36415; 70450-TC; 70551-TC; 71046-TC-FY; 80048; 80053; 81003; 81015; 82550; 82553; 82607; 83735; 84100; 84484; 85025; 85610; 85651; 85730; 87086; 93005; 93010; 93306-TC; 96372; 97116-GP; 97161-GP; 99284-25; G0378; J1644